=== PATIENT | female | born 1995 | race Caucasian/White ===

== ENCOUNTER 2021-07-28 17:47 | Emergency (ER) | payer OTHER ==
[~2021-07-28] VITALS: Ht 154.9 cm; Wt 70.8 kg
--- NOTE | 2021-07-28 18:00 | NUR ---
c/o chest pain 08/20 came and candy for one month goting worse since yesterday awake dineses SOB or any distress
--- NOTE | 2021-07-28 18:30 | NUR ---
Seen by DR. multani Blood drow and sent to lab
--- NOTE | 2021-07-28 19:00 | NUR ---
BLOOD ROW BY LAB TACH
[2021-07-28 19:01] LABS: CALCIUM, SERUM 8.7 mg/dL (8.5-10.1); CARBON DIOXIDE 30 mmol/L (21-32); CHLORIDE 103 mmol/L (98-107); CREATININE 0.9 mg/dL (0.6-1.3); GLUCOSE 103 mg/dL (74-106); POTASSIUM 3.8 mmol/L (3.5-5.1); SODIUM SERUM 137 mmol/L (136-145); UREA NITROGEN, BLOOD 8 mg/dL (7-18)
--- NOTE | 2021-07-28 19:27 | NUR ---
hand off to gurdeep nunez
[2021-07-28 20:30] LABS: BASOPHILS % (AUTO) 0.6 % (0.0-2.0); EOSINOPHILS % (AUTO) 2.2 % (0.0-6.0); HEMATOCRIT 36 % (33-45); HEMOGLOBIN 12.2 g/dL (11.5-14.8); LYMPHOCYTES # (AUTO) 2.1 K/uL (0.8-4.8); MEAN CORPUSCULAR HGB CONC 33 g/dl (31.0-36.0); MEAN CORPUSCULAR VOLUME 82 fL (82-100); MONOCYTES # (AUTO) 0.3 K/uL (0.1-1.30); MONOCYTES % (AUTO) 5.6 % (2.0-12.0); NEUTROPHILS # (AUTO) 3.4 K/uL (1.8-8.9); NEUTROPHILS % (AUTO) 56.6 % (43.0-81.0); PLATELET COUNT (AUTO) 197 K/uL (150-450); RED BLOOD CELL COUNT(AUTO) 4.46 MIL/uL (4.0-5.2)
[2021-07-28] MEDS ORDERED: IBUPROFEN 600 MG TABLET PO ONE ×2 (21:00→21:30)
[2021-07-28] MEDS ORDERED: NAPR-1164 PO (21:29)
--- NOTE | 2021-07-28 21:29 | NUR ---
Patient discharged to home in stable condition. Written and verbal after care instructions given. Patient verbalizes understanding of instruction.
[2021-07-28 21:30] VITALS: BP 126/78
== END 2021-07-28 21:41 | disposition home or self-care (01) ==
LOC: ER 17:57
DX: R07.89 Other chest pain (principal)
CPT/HCPCS: 36415; 71045-TC; 80048-TC; 84484-TC; 85025-TC; 85378-TC